=== PATIENT | male | born 1990 | race Caucasian/White ===

== ENCOUNTER 2016-12-03 10:10 | Outpatient (CLI) | payer OTHER | END 2016-12-03 10:11 | disposition home or self-care (01) | DX: G47.30 Sleep apnea, unspecified (principal); R06.83 Snoring; G47.10 Hypersomnia, unspecified ==

== ENCOUNTER 2016-12-05 22:16 | Outpatient (CLI) | payer OTHER | END 2016-12-05 22:17 | disposition home or self-care (01) | DX: G47.61 Periodic limb movement disorder (principal) ==

== ENCOUNTER 2016-12-18 13:55 | Outpatient (CLI) | payer OTHER | END 2016-12-18 13:56 | disposition home or self-care (01) | DX: R06.83 Snoring (principal); G47.61 Periodic limb movement disorder ==